=== PATIENT | female | born 1980 | race Caucasian/White ===

== ENCOUNTER 2023-09-07 15:51 | Outpatient (AMB) | payer OTHER, SELFPAY ==
--- NOTE | 2023-09-07 15:56 | AM.OFFWIN_ITS ---
Intake Vital Signs 09/07/23 15:58 Height 5 ft 10 in BP 110/62 Blood Pressure Location Lt brachial Position Sitting Pulse 80 Pulse Source Pulse Oximeter Temp 98.6 F Temp Source Oral Pulse Oximetry (%) 99 Oxygen Delivery Method Room Air Intake Visit Reasons: [employer] pain pressure both ears congestion fever Intake Note: pt is here for pain and pressure in ears and congestion Patient Tobacco Use Status: Never used Tobacco Allergies amoxicillin Allergy (Mild, Verified 09/07/23 15:58) Rash Sulfa (Sulfonamide Antibiotics) Allergy (Mild, Verified 09/07/23 15:58) Hives Do you need a note to return to daycare/school/sports/work: No HPI HPI Comments History of Present Illness Details 43 y/o female patient who presents to [facility] with c/o URI symptoms since Yesterday. PFSH Social History Patient Tobacco Use Status: Never used Tobacco Physical Exam Vital Signs: Last Vital Signs Temp 98.6 F 09/07/23 15:58 Pulse 80 09/07/23 15:58 BP 110/62 09/07/23 15:58 Pulse Ox 99 09/07/23 15:58 Oxygen Delivery Method Room Air 09/07/23 15:58 Const General: comfortable and no acute distress Orientation/consciousness: patient oriented x3 HEENT Head: Yes normocephalic Ears: external ears normal and TM abnormal with fluid behind the TM bilateral; not bulging, not with effusion, not erythematous, not perforated and not retracted General nose exam: Abnormal mucous membranes and turbinates present boggy and erythematous and Nasal discharge present Face and sinus: Yes sinuses nontender Mouth: moist mucous membranes Throat: Yes posterior oropharynx normal Resp Effort & Inspection: normal respiratory effort and able to speak in complete sentences Auscultation: clear to auscultation bilaterally, no crackles, no rales, no rhonchi and no wheezes Cardio Rate: regular rate Rhythm: regular rhythm Neuro General: patient oriented x3, gait normal and moves all extremities Psych Speech and movement: Normal speech and movement present Assessment & Plan Assessment & Plan (1) Upper respiratory infection: Code(s): J06.9 - Acute upper respiratory infection, unspecified Qualifiers: URI type: acute nasopharyngitis (common cold) Qualified Code(s): J00 - Acute nasopharyngitis [common cold] Plan: - OTC cold medications. - Rest and hydrate with warm fluids. - RTC if symptoms worse. Orders: Orders SARS-CoV2/FLU/RSV Today J00 - Acute nasopharyngitis [common cold] Medications: New cetirizine (Zyrtec) 10 mg PO DAILY PRN 30 tabs 0RF allergy symptoms J00 - Acute nasopharyngitis [common cold] oxymetazoline 0.05% (Afrin Sinus (oxymetazoline)) 2 sprays intranasal Q12H 3 days PRN 15 mL 0RF nasal congestion J00 - Acute nasopharyngitis [common cold] Coding Level of Care Code Est Pt Level 3 (75078) Diagnoses Acute nasopharyngitis J00 URI type: acute nasopharyngitis (common cold) Time Spent (min) 15
[2023-09-07 15:58] VITALS: BP 110/62; PULSE 80; TEMP 37; O2SAT 99
== END 2023-09-07 16:27 | disposition home or self-care (01) ==
PROVIDERS: Visit Provider Nurse Practitioner Family
DX: J00 Acute nasopharyngitis [common cold] (principal)
CPT/HCPCS: 99213

== ENCOUNTER 2023-09-07 16:28 | Outpatient (REF) | payer OTHER, SELFPAY ==
[2023-09-08 11:39] LABS: Influenza A PCR NEGATIVE (Negative); Influenza B PCR NEGATIVE (Negative); Resp Syncy Virus RNA Qual PCR NEGATIVE (Negative); SARS COV2 PCR INHOUSE NEGATIVE (Negative)
== END 2023-09-07 16:29 | disposition home or self-care (01) ==
LOC: HO.LAB 16:28
PROVIDERS: Visit Provider Nurse Practitioner Family
DX: Z11.52 Encounter for screening for COVID-19 (principal); J00 Acute nasopharyngitis [common cold]
CPT/HCPCS: 0241U